=== PATIENT | male | born 1965 | race Caucasian/White ===

== ENCOUNTER 2025-01-24 13:26 | Inpatient (IN) | payer MEDICAID ==
[~2025-01-24] VITALS: Ht 180.3 cm; Wt 88.0 kg
--- NOTE | 2025-01-24 13:38 | Physician Documentation ---
Addendum CHIEF COMPLAINT/HPI: The patient is brought here by EMS after police were called because he was seen crawling on the ground. He has been disoriented and not answering questions appropriately. There are no prior visits present in the EMR. He apparently had a girlfriend but she ran off prior to EMS arrival so no prior medical history has been obtained. REVIEW OF SYSTEMS: Unable to obtain due to altered mental status. PHYSICAL EXAMINATION: Vitals and nursing note reviewed. Constitutional: General: Patient is awake, alert and disoriented. Speech is clear. Appearance: There is a question of slight right-sided facial droop. HENT: Head: Normocephalic and atraumatic. Mouth/Throat: Mouth: Mucous membranes are moist. Pharynx: Oropharynx is clear. Eyes: General: No scleral icterus. Extraocular Movements: Extraocular movements intact. Pupils: Pupils are equal, round, and reactive to light. Neck: Supple, no Kernig or Brudzinski sign. Cardiovascular: Rate and Rhythm: Normal rate and regular rhythm. Heart sounds: No murmur heard. Pulmonary: Effort: No respiratory distress. Breath sounds: No wheezing, rhonchi or rales. Abdominal: General: There is no distension. Palpations: There is no fluid wave, hepatomegaly or mass. Tenderness: There is no abdominal tenderness. There is no guarding. Musculoskeletal: General: No swelling or deformity. Skin: Coloration: Skin is not jaundiced. Findings: No erythema or rash. Neurological: Mental Status: Patient is alert. He does appear to be neglecting his right side. EKG medically necessary in the evaluation of stroke and interpreted by me at the time of patient evaluation. Rhythm is sinus rhythm with a rate of 89. Right axis deviation. Impression: Abnormal EKG. MEDICAL DECISION MAKING: This 59-year-old male presented after inappropriate behavior, crawling on the ground, confusion and neglecting his right side. Tele stroke agreed with this assessment and recommended admission for the full stroke workup. Departure Disposition: ADMITTED INPATIENT Admitted to Inpatient Unit: to hospitalist Admission Level of Care: Neuro with Tele Impression: Primary Impression: Cerebrovascular accident Condition: MANJIT Brown MD Jan 24, 2025 13:38
[2025-01-24 13:44] LABS: MEAN PLATELET VOLUME 7.5 FL (7.4-10.4); RED CELL DISTRIBUTION WIDTH 14.3 % (11.5-14.5)
[2025-01-24 13:57] LABS: APTT 26 SECONDS (22-32); INR 1.1 INR
--- NOTE | 2025-01-24 14:02 | ELECTROCARDIOGRAPH REPORT ---
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
--- NOTE | 2025-01-24 14:18 | RADIOLOGY REPORT ---
EXAM: CT CT STROKE ALERT INDICATION: Level two TECHNIQUE: CT images of the head were obtained without administration of IV contrast. CT scans at this facility use dose modulation, iterative reconstruction, and/or weight based dosing when appropriate to reduce radiation dose to as low as reasonably achievable. COMPARISON: CT CTA NECK/HEAD on DOS: 01/24/25 FINDINGS: PARENCHYMA: No acute hemorrhage. There is no mass effect, midline shift, or herniation. There is preservation of the murdock white differentiation. Moderate scattered hypoattenuation along the periventricular, centrum semiovale, and deep white matter tracts, which are nonspecific however statistically most likely represent chronic microvascular ischemic change. area of hypoattenuation with loss of murdock-white differentiation of the left parietal lobe, age-indeterminate. VENTRICLES: No hydrocephalus. EXTRA-AXIAL SPACES: No extra-axial fluid collections. OTHER: The bony structures are intact. Visualized portions of the paranasal sinuses and mastoid air cells are clear. IMPRESSION: 1. No CT evidence of an acute intracranial hemorrhage. 2. Age-indeterminate areas of hypoattenuation with loss of murdock-white differentiation of the left parietal lobe and left cerebellar hemisphere. Critical Findings: Stroke Alert Findings discussed with MANJIT OSCAR at 01/24/2025 4:16 PM BAIT MAN, who acknowledged receipt and understanding of the findings.
--- NOTE | 2025-01-24 14:25 | RADIOLOGY REPORT ---
CHEST RADIOGRAPH Indication: Stroke Alert Technique: Single frontal view of the chest was obtained Comparison: None FINDINGS: Lines and Tubes: None Lungs: No focal consolidation. Pleura: No effusion. No pneumothorax. Cardiomediastinal contours: Unremarkable Bones: No acute osseous abnormality. IMPRESSION: No acute cardiopulmonary disease.
--- NOTE | 2025-01-24 14:27 | RADIOLOGY REPORT ---
CLINICAL INFORMATION: Level 2 stroke alert. Left-sided weakness. TECHNIQUE: Axial CTA images of the head and neck were obtained after the uneventful administration of 100 mL Omnipaque 350 IV contrast. Coronal and sagittal reformatted images and MIP images were obtained, reviewed, and stored. Measurements of carotid stenosis are made per NASCET criteria. All CT scans at this medical facility are performed using dose modulation techniques as appropriate to a performed exam including the following: Automated exposure control was utilized; adjustment of the MA and/or KV according to patient size; and use of iterative reconstruction technique. CTDIvol = 15.23, 27.34 mGy DLP = 645.07 mGy-cm COMPARISON: Same-day noncontrast enhanced CT head. FINDINGS: CTA HEAD: Posterior cerebral arteries, basilar artery, and intracranial segments of the distal vertebral arteries are normal in caliber and course with no evidence of aneurysm, large vessel occlusion, significant stenosis, or vascular malformation. The anterior and middle cerebral arteries and intracranial segments of the distal internal carotid arteries are normal in caliber and course with no evidence of aneurysm, large vessel occlusion, significant stenosis, or vascular malformation. CTA NECK: Normal configuration of the aortic arch with patent origins of the brachiocephalic artery, left common carotid artery, and left subclavian artery. Subclavian arteries are patent with no significant stenosis. The bilateral common carotid, internal carotid, and external carotid arteries are patent with no significant stenosis or evidence of dissection. Vertebral arteries are patent with no significant stenosis or evidence of dissection. IMPRESSION: 1. CTA head demonstrates no evidence of large vessel occlusion, aneurysm, or significant stenosis. 2. CTA neck demonstrates no evidence of carotid or vertebral dissection or significant stenosis. 3. Additional findings as detailed above.
[2025-01-24 14:40] LABS: CREATININE 0.92 MG/DL (0.60-1.10); TOTAL CARBON DIOXIDE 20.8 MMOL/L (24-32); eCRCL 92 ML/MIN; eGFR 84 ML/MIN
[2025-01-24 14:48] LABS: ETHANOL < 10 MG/DL (<10)
--- NOTE | 2025-01-24 15:33 | [facility] CONSULT REPORT ---
[facility] Procedure Note [facility] Procedure Note Consult [facility] Note # Demographics Consult Type: Acute Stroke Level 2 (4.5-24 hrs) Patient Location: Emergency Room First Name: KAROL Last Name: MARI Date of : 1965 Age: 59 Gender: Male Facility: [facility] Time of Initial Page (): 01/24/2025 14:35 First Contact with Site (): 01/24/2025 14:35 # HPI Chief Complaint: - altered mental state History: 59 y/o M presented after found crawling on the floor and altered. He denies a headache, loss of vision, double vision, weakness, numbness or tingling. He says he feels weird and doesn't know what is wrong. Pt unable to provide any history. # Scores Time of exam and NIHSS (): 01/24/2025 15:09 Level of Consciousness 1a: [0] = Alert; keenly responsive LOC Questions 1b: [2] = Answers neither correctly LOC Commands 1c: [0] = Performs both tasks correctly Best Gaze 2: [1] = Partial gaze palsy Visual 3: [0] = No visual loss Facial Palsy 4: [0] = Normal symmetrical movements Motor Arm Left 5a: [0] = No drift Motor Arm Right 5b: [1] = Drift Motor Leg Left 6a: [2] = Some effort against gravity Motor Leg Right 6b: [3] = No effort against gravity Limb Ataxia 7: [0] = Absent Sensory 8: [0] = Normal Best Language 9: [1] = Fayr-aw-ydybproz aphasia Dysarthria 10: [0] = Normal Extinction and Inattention 11: [1] = Visual, tactile, auditory, spatial, or personal inattention NIHSS Total: 11 # Exam SBP: 146 DBP: 99 Additional Neurologic Exam: exam limited due to AMS and ? neglect and no staff at bedside to assist # PMH-FH-SH Past Medical History: unknown # Data Head CT: - early ischemic change age indeterminate L parietal and L cerebellar infarcts CTA Head: - no large vessel occlusion - per radiologist read CTA Neck: - patent vessels - per radiologist read # Assessment Impression: - Ischemic Stroke (Acute) # Plan Thrombolytic/Intervention: NOT IV Thrombolysis or IA Intervention candidate Thrombolytic Exclusion: > 4.5 hours Intraarterial Exclusion: - no large vessel occlusion (LVO) Labs: - CBC - comprehensive metabolic panel - hemoglobin A1c - lipid panel - ua - urine drug screen - TSH - troponin - Ammonia Imaging: (urgency: routine): - MRI Brain without contrast Diagnostic Test: - echo with bubble study Therapy/Evaluation: - PT/OT evaluation - NPO until swallow evaluation Medication: - aspirin 81 mg daily - start statin with goal of LDL < 70 Other: - If patient has any neurological deterioration please call me back immediately - permissive hypertension - telemetry monitoring - I have discussed my recommendations with the referring provider - LDL < 70 Disposition: admit # Logistics Attestation of consult completion: The patient is located at: [facility]. Facility staff participated in the visit. I performed this telemedicine visit from my offsite office utilizing interactive 2 way audio and visual telecommunication technology at the request of the onsite emergency room provider. Total time spent in telemedicine encounter: I spent 25 minutes reviewing clinical data and/or imaging, obtaining history, examining the patient, communicating with the onsite care team, and in preparation of this report. # Demographics First Name: KAROL Last Name: MARI Facility: [facility] Electronically signed at 01/24/2025 15:33 ([place] Time) by Adri Salas MD Neuro Consult Order placed for: Yes ADRI SALAS MD Jan 24, 2025 15:33
[2025-01-24 16:16] LABS: LEUKOCYTE ESTERASE ,URINE NEGATIVE (Neg); NITRITES, URINE NEGATIVE (Neg); OCCULT BLOOD,URINE NEGATIVE (Neg)
[2025-01-24 16:27] LABS: UA COLLECTION TYPE NON-SPECIFIED
[2025-01-24 16:54] LABS: URINE AMPHETAMINE SCREEN POSITIVE (Neg); URINE BARBITUATE SCREEN NEGATIVE (Neg); URINE BENZODIAZEPINES SCREEN NEGATIVE (Neg); URINE CANNABINOID SCREEN POSITIVE (Neg); URINE COCAINE SCREEN NEGATIVE (Neg); URINE METHADONE SCREEN NEGATIVE (Neg); URINE OPIATE SCREEN NEGATIVE (Neg); URINE PHENCYCLIDINE SCREEN NEGATIVE (Neg)
[2025-01-24] MEDS ORDERED: ondansetron/PF 4mg/2ml inj IV PRN (18:05)
[2025-01-24] MEDS: normal saline 1000ml 1,000 ML IV SCH (18:05)
[2025-01-24] MEDS: PERFLUTREN PROTEIN-A MICROSPHR (Optison) 0.22 MG/ML 3ML VIAL IV ONE (18:05)
[2025-01-24] MEDS ORDERED: potassium Cl 40MEQ/1/2NS 520ml 520 ML IV PRN (18:05)
[2025-01-24] MEDS ORDERED: mag hydrox/Alum hydrox/simeth 30ml oral suspension PO PRN (18:05)
[2025-01-24] MEDS ORDERED: magnesium Cl slow-release 64mg tablet PO PRN (18:05)
[2025-01-24] MEDS ORDERED: magnesium sulf-water 2g/50mL 50 ML IV PRN (18:05)
[2025-01-24] MEDS ORDERED: potassium Cl 20 mEq SR tablet PO PRN ×2 (18:05)
[2025-01-24] MEDS ORDERED: magnesium hydroxide 30ml (MOM) UD suspension PO PRN (18:05)
[2025-01-24] MEDS ORDERED: magnesium sulf-water 4G/100mL 100 ML IV PRN (18:05)
--- NOTE | 2025-01-24 18:17 | HISTORY AND PHYSICAL-Residence ---
History & Physical Providers to CC Resident Creating Document: JOJO GOMEZ, RES CC: ROLO ARZOLA MD ~ History of Present Illness Reason for Admit\Complaint: TIA/stroke History of Present Illness This is a 59-year-old male patient with unknown past medical history was brought here by EMS after police were called because he was seen crawling on the ground. On arrival to the ED, patient was AxO times 0, patient was extremely confused as per ED physician. Apparently patient had extreme weakness and parked his car to the side and started crawling on the ground. Patient was seen and examined with his mother by his side. Most of the information regarding the patient was obtained from patient's mother. As per information provided by the mother, has been experiencing recurrent episodes of confusion the last one month and has also had multiple falls and weakness during the last one month. Patient has not seen a primary care doctor in a very long time. Patient could not give me any significant history Patient lives with his mother and father in their house. Patient does not have a primary care doctor Allergies: Coded Allergies: No Known Allergies (Unverified , 01/24/25) Past Medical History Past Medical History None Past Surgical History Surgical History Comment None Past Social History Social History Comment Patient occasionally drinks alcohol, does not have a history of any tobacco use Patient does have a history of methamphetamine use ROS ROS Review of systems could not be elicited, the patient was extremely confused and was not coherent Exam Vitals: Vital Signs Date Time Temp Pulse Resp B/P (MAP) Pulse Ox O2 Delivery O2 Flow Rate FiO2 01/24/25 18:07 78 18 147/98 95 01/24/25 13:33 98.0 0 General: General: Alert and oriented x 0 HEENT: Conjunctive are pink, sclerae clear, no icterus, pupil is equal in both sides, reactive to light, no ear discharge, no pharyngeal erythema or an edema. Neck: Supple, no JVD, no lymphadenopathy and thyromegaly. Chest: Equal air entry on both lungs, no additional sounds no rhonchi no wheezing at the moment. Cardiovascular: S1-S2 regular sinus rhythm and, regular rate, no gallops, no rubs, no murmurs Abdomen: No visible peristalsis, Bowel sounds present on auscultation, soft, no tenderness, no guarding, no rigidity Extremities: No obvious deformities, no pitting edema bilaterally, capillary refill intact, peripheral pulsations are intact on both sides Central Nervous System: Patient is extremely confused, not cooperate for a full central nervous system examination. However patient did have 5/5 strength in his left upper extremity, but had 0/5 in right upper extremity, he could not follow my commands further Musculoskeletal: No joint swelling, deformities, inflammations, and no scoliosis and back tenderness Skin: Bruises present on patient's bilateral knees and bilateral ankles and hands. Warm and dry. Dry oral mucosa. Diagnostic Data Last Recorded Lab Results: 01/24/25 1336 01/24/25 1336 Diagnostic Data: Laboratory Tests Test 01/24/25 13:36 Prothrombin Time 10.8 SECONDS (9.0-12.0) INR International Normalized Ratio 1.1 INR Activated Partial Thromboplast Time 26 SECONDS (22-32) Coagulation Comments Advance Care Planning Advanced Care plannin - 30 Minutes (Discussed advanced care planning with the patient's mother, as patient appears confused and she told me that she wanted patient to be a full code) Additional Plan Altered mentation secondary to illicit drug use CVA likely secondary to acute ischemic stroke versus subacute ischemic stroke versus encephalopathy On physical examination: Patient does have neglect of his right side; CT brain reported No CT evidence of an acute intracranial hemorrhage. Age- indeterminate areas of hypoattenuation with loss of murdock-white differentiation of the left parietal lobe and left cerebellar hemisphere. Head CTA:no evidence of large vessel occlusion, aneurysm, or significant stenosis. CTA neck demonstrates no evidence of carotid or vertebral dissection or significant stenosis. EKG: normal ST segments are unremarkable no ST elevation or depression. [place] teleneurologist was consulted NIHSS score 11(as per tele neurologist); Tele neurologist excluded thrombolysis option as the duration is more than 4.5 hours Maintain target blood pressure is between 140-180mmHg Utox was positive for amphetamines and cannabinoids Plan Continue aspirin 81 mg, atorvastatin 80 mg and clopidogrel 75 mg Initiated the patient on fluids normal saline 100 ml/hr Fall and aspiration precautions in place, Patient is NPO till he passes bedside swallow test Ordered physical therapy Follow up with ammonia levels, lipid profile, HGB A1c Follow up with MRI head Follow with echocardiogram Active methamphetamine and cannabinoid use director clinical information services and substance abuse navigator orders in place Code Status: Full code DVT Prophylaxis: SCDs Lines/Tubes: PIV Nutrition: NPO PT:yes Prognosis: Guarded Disposition: We will continue to monitor the patient in ortho/neurology with telemetry Jojo Gomez MD Internal medicine resident,PGY-1 Date of Service: Jan 24, 2025 Billing Provider: ROLO ARZOLA MD Common Visit Codes: [id number] INP/OBS CARE (HIGH) Secondary Visit Codes: [id number] CARE PLAN 30 MINUTES JOJO GOMEZ, RES Jan 24, 2025 18:17 ROLO ARZOLA MD Feb 01, 2025 15:22
[2025-01-24] MEDS: K and/or MAG REPLACEMENT MC SCH (20:00)
[2025-01-24] MEDS: docusate sod 100mg capsule PO SCH (20:00)
[2025-01-24 22:15] VITALS: BP 174/103; PULSE 72; RESP 16; TEMP 97.8; O2SAT 96
[2025-01-25 02:00] VITALS: BP 129/85; PULSE 80; RESP 14; TEMP 97.4; O2SAT 97
[2025-01-25 04:25] VITALS: BP 138/91; PULSE 68
[2025-01-25 06:00] VITALS: BP 131/93; PULSE 78; RESP 18; TEMP 96.9; O2SAT 100
[2025-01-25 06:15] LABS: MEAN PLATELET VOLUME 7.8 FL (7.4-10.4); RED CELL DISTRIBUTION WIDTH 14.3 % (11.5-14.5)
[2025-01-25 06:20] LABS: CHOL/HDL RATIO 3.1 (0.00-4.99); CREATININE 0.69 MG/DL (0.60-1.10); LDL CHOLESTEROL 76 MG/DL (50-100); TOTAL CARBON DIOXIDE 26.0 MMOL/L (24-32); eCRCL 123 ML/MIN; eGFR > 90 ML/MIN
[2025-01-25 06:22] LABS: APTT 28 SECONDS (22-32); INR 1.1 INR
[2025-01-25 10:00] VITALS: BP 135/89; PULSE 74; RESP 20; TEMP 98.5; O2SAT 96
[2025-01-25] MEDS: aspirin 81mg, enteric-coated 1 TAB TABLET.DR PO SCH (11:55)
--- NOTE | 2025-01-25 16:37 | PROGRESS NOTE- Residence ---
Progress Note - Resident Providers to CC Resident Creating Document: JOJO COLLINS RES ~ Antibiotic Timeout Antibiotic Ordered?: No Subjective Patient was seen and examined at his bedside with his mom and his girlfriend by his side. Patient continues to have confusion alert and oriented x1. His mentation is slightly better compared to yesterday. No other acute overnight symptoms noted Objective Vital Signs Date Time Temp Pulse Resp B/P (MAP) Pulse Ox O2 Delivery O2 Flow Rate FiO2 01/25/25 11:33 Room Air 0.0 01/25/25 10:00 98.5 74 20 135/89 (104) 96 Result Diagram: 01/25/2553201/25/25532 General: Alert and oriented x 1. Patient is still continues to be confused but better in mentation compared to yesterday HEENT: Conjunctive are pink, sclerae clear, no icterus, pupil is equal in both sides, reactive to light, no ear discharge, no pharyngeal erythema or an edema. Neck: Supple, no JVD, no lymphadenopathy and thyromegaly. Chest: Equal air entry on both lungs, no additional sounds no rhonchi no wheezing at the moment. Cardiovascular: S1-S2 regular sinus rhythm and, regular rate, no gallops, no rubs, no murmurs Abdomen: No visible peristalsis, Bowel sounds present on auscultation, soft, no tenderness, no guarding, no rigidity Extremities: No obvious deformities, no pitting edema bilaterally, capillary refill intact, peripheral pulsations are intact on both sides Central Nervous System: Patient continues to fluctuate in his mentation, not cooperate for a full central nervous system examination. However, patient did have 5/5 strength in all extremities today. Patient could not follow my other commands for a full neurological examination Musculoskeletal: No joint swelling, deformities, inflammations, and no scoliosis and back tenderness Skin: Bruises present on patient's bilateral knees and bilateral ankles and hands. Warm and dry. Dry oral mucosa. Coagulation Studies Laboratory Tests Test 01/25/25 05:33 Prothrombin Time 10.9 SECONDS (9.0-12.0) INR International Normalized Ratio 1.1 INR Activated Partial Thromboplast Time 28 SECONDS (22-32) Coagulation Comments Advance Care Planning Advanced Care plannin - 30 Minutes Plan Plan Altered mentation secondary to illicit drug use CVA likely secondary to acute ischemic stroke versus subacute ischemic stroke versus encephalopathy Patient had neglect of his right side yesterday today patient's motor examination was normal CT brain reported N evidence of an acute intracranial hemorrhage. Age- indeterminate areas of hypoattenuation with loss of murdock-white differentiation of the left parietal lobe and left cerebellar hemisphere. Head CTA:no evidence of large vessel occlusion, aneurysm, or significant stenosis. EKG: normal ST segments are unremarkable no ST elevation or depression. Utox was positive for amphetamines and cannabinoids Patient's ammonia was normal, lipid panel normal Echocardiogram reported EF of 60-65% Patient passed his swallow test by speech therapy; initiated minced moist diet Plan Continue aspirin 81 mg, atorvastatin 80 mg and clopidogrel 75 mg Continue the patient on fluids normal saline 100 ml/hr Fall and aspiration precautions in place, Ordered physical therapy Follow up with MRI head Ascending aorta dilation Incidental echocardiogram measured dilation and ascending aorta 4.9 cm Would recommend patient to get CT and outpatient follow up with his primary care doctor Active methamphetamine and cannabinoid use coordinator of library services and substance abuse navigator orders in place Newly diagnosed type 2 diabetes Hb A1c elevated at 6.5 Continue to monitor glucose and we will possibly initiate treatment if his blood glucose spikes more than 180mg/dl Code Status: Full code DVT Prophylaxis: SCDs Lines/Tubes: PIV Nutrition: Minced moist diet PT:yes Prognosis: Guarded Disposition: We will continue to monitor the patient in ortho/neurology with telemetry. MRI pending Jojo Collins MD Internal medicine resident,PGY-1 Date of Service: Jan 25, 2025 Billing Provider: ROLO ARZOLA MD Common Visit Codes: [id number] INP/OBS CARE(HIGH) JOJO COLLINS, RES Jan 25, 2025 16:37 ROLO ARZOLA MD Feb 01, 2025 15:22
--- NOTE | 2025-01-25 18:31 | CARDIOLOGY REPORT ---
APPROVED REPORT EXAM: Comprehensive 2D, Doppler, and color-flow Echocardiogram with saline. Patient Location: 4[address] Blood Pressure: 131/93 mmHg Heart Rate: 73 bpm Rhythm: SINUS Indications CEREBRAL VASCULAR ACCIDENT EVALUATE FOR PFO [employer] Worker: unknown (pt confused, unable to answer questions) Previous echo: none 2D Dimensions RVDd 3.4 cm IVSd 1.2 (0.7-1.1cm) LVDd 4.5 cm PWd 1.2 (0.7-1.1cm) IVSs 1.4 (0.8-1.2cm) LVDs 3.4 (2.5-4.0cm) PWs 1.6 (0.8-1.2cm) LVOT Diameter 2.37 (1.8-2.4cm) Ao Asc Diam. 5.04 cm IVC 17.71 mm FS (%) 25.3 % SV 47.1 ml CO 3.4 L/min M-Mode Dimensions Left Atrium(MM) 3.01 (2.5-4.0cm) IVSd 1.17 (0.7-1.1cm) LVDd 4.16 (4.0-5.6cm) Aortic Root 3.67 (2.2-3.7cm) PWd 1.24 (0.7-1.1cm) Aortic Cusp Exc 1.81 (1.5-2.0cm) IVSs 1.63 cm MV EPSS 0.9 (<0.5cm) LVDs 2.80 (2.0-3.8cm) FS (%) 33 % PWs 2.02 cm ESV(Teich) 29.6 ml LVEF(%) 62 (>50%) Aortic Valve AoV Peak Lopez. 111.2 cm/s AoV VTI 17.4 cm AO Peak GR. 4.9 mmHg AO Mean GR. 2 mmHg LVOT VTI 18.26 cm LVOT Peak Lopez. 93.3 cm/s FRANCISCO(VTI)/BSA 4.62 cm2/m2 FRANCISCO (VTI) 4.62 cm2 AV DI 1.05 % Mitral Valve MV E Velocity 59.3 cm/s MV Peak Gr. 1 mmHg MV DECEL TIME 196 ms MV A Velocity 72.9 cm/s MV PHT 52 ms E/A Ratio 0.8 MVA (PHT) 4.23 cm2 MV VMax 51.8 cm/s TDI Medial E' P. V 8.31 cm/s E/Medial E' 7.1 Pulmonary Vein S1 Velocity 59.6 cm/s D2 Velocity 38.7 cm/s PVa Velocity 23.5 cm/s PVa Duration 108 msec LEFT VENTRICLE Normal LV size and function. Mild concentric hypertrophy. LVEF is 60-65%. RIGHT VENTRICLE RV is mildly dilated in size with normal function. ATRIA LA size is normal. Saline study was performed with 2 IV injections of 10 ccs of agitated normal saline at rest and with valsalva. Negative saline study for right to left flow. AORTIC VALVE Trileaflet AV appears mildly sclerotic without stenosis or insufficiency. MITRAL VALVE Mild MV annular calcification without stenosis. Trace regurgitation. TRICUSPID VALVE TV appears structurally normal with trace regurgitation. PULMONIC VALVE Normal PV without stenosis, physiologic insufficiency. GREAT VESSELS Aortic root is upper limit normal in size. Ascending aorta is dilated, measuring about 4.[address] to evaluate further if clinically indicated. The IVC is normal in size and collapses greater than 50% with inspiration. PERICARDIUM Normal pericardium. No effusion. Other Information Study Quality: Adequate Conclusion Normal LV size and function. Mild concentric hypertrophy. LVEF is 60-65%. RV is mildly dilated in size with normal function. LA size is normal. Saline study was performed with 2 IV injections of 10 ccs of agitated normal saline at rest and with valsalva. Negative saline study for right to left flow. Trileaflet AV appears mildly sclerotic without stenosis or insufficiency. Mild MV annular calcification without stenosis. Trace regurgitation. TV appears structurally normal with trace regurgitation. Aortic root is upper limit normal in size. Ascending aorta is dilated, measuring about 4.[address] to evaluate further if clinically indicated. Normal pericardium. No effusion.
--- NOTE | 2025-01-25 19:00 | RADIOLOGY REPORT ---
EXAM: MR MRI HEAD INDICATION: TIA/STROKE TECHNIQUE: Multiplanar, multisequence imaging of the brain without contrast. COMPARISON: CT CTA NECK/HEAD on DOS: 01/24/25 FINDINGS: [PARENCHYMA]: Significant multifocal areas of diffusion restriction along the left insert cortex, posterior frontal lobe, left parietal lobe . No mass effect or herniation. No abnormal susceptibility weighted artifact. There are moderate to severe periventricular and centrum semiovale T2/FLAIR hyperintensities, which are nonspecific but most likely represent chronic microvascular ischemic change. Multiple areas of the lacunar infarctions in bilateral centrum semiovale. Prior infarction of the left cerebellar hemisphere with surrounding gliosis. [VENTRICLES]: No hydrocephalus. [EXTRA-AXIAL SPACES]: No extra-axial fluid collections. [FLOW VOIDS]: The flow voids are intact. [EXTRA-CRANIAL STRUCTURES]: The bony structures are intact. Visualized portions of the paranasal sinuses and mastoid air cells are essentially clear. IMPRESSION: 1. Multiple acute infarcts in the left posterior frontal and parietal lobes. 2. Moderate to severe chronic microvascular ischemic change. 3. Multiple chronic lacunar infarctions in bilateral centrum semiovale. 4. Chronic left cerebellar hemisphere infarct.
[2025-01-25 22:00] VITALS: BP 168/101; PULSE 64; RESP 14; TEMP 97.4; O2SAT 96
[2025-01-26 02:00] VITALS: BP 152/94; PULSE 77; RESP 14; TEMP 98.6; O2SAT 96
[2025-01-26 06:00] VITALS: BP 161/90; PULSE 67; RESP 15; TEMP 96.8; O2SAT 95
[2025-01-26 06:06] LABS: MEAN PLATELET VOLUME 7.5 FL (7.4-10.4); RED CELL DISTRIBUTION WIDTH 14.1 % (11.5-14.5)
[2025-01-26 06:30] LABS: CREATININE 0.84 MG/DL (0.60-1.10); TOTAL CARBON DIOXIDE 26.1 MMOL/L (24-32); eCRCL 101 ML/MIN; eGFR > 90 ML/MIN
[2025-01-26 09:06] VITALS: RESP 15; O2SAT 95
[2025-01-26] MEDS: thiamine 100mg/ml 2ml inj. IV SCH (14:23)
[2025-01-26 18:00] VITALS: BP_SYST 150; BP_SYST 155; BP_DIAS 97; PULSE 76; RESP 14; TEMP 97.5; O2SAT 95
[2025-01-26 19:33] VITALS: RESP 16; O2SAT 95
--- NOTE | 2025-01-26 19:48 | PROGRESS NOTE- Residence ---
Progress Note - Resident Providers to CC Resident Creating Document: JOJO COLLINS RES CC: ROLO ARZOLA MD ~ Antibiotic Timeout Antibiotic Ordered?: No Subjective Patient was seen and examined at his bedside with his mom and his girlfriend by his side. Mentation [place] patient is much better compared to yesterday; explained to the patient and his family regarding his MRI results and the need of post acute rehab after his discharge. No other acute overnight symptoms noted Objective Vital Signs Date Time Temp Pulse Resp B/P (MAP) Pulse Ox O2 Delivery O2 Flow Rate FiO2 01/26/25 19:33 16 95 Room Air 0.0 01/26/25 18:30 81 01/26/25 18:00 97.5 155/97 (116) Result Diagram: 01/26/25 0535 01/26/25534 General: Alert and oriented x 2. Patient is still continues to be confused but better in mentation compared to yesterday HEENT: Conjunctive are pink, sclerae clear, no icterus, pupil is equal in both sides, reactive to light, no ear discharge, no pharyngeal erythema or an edema. Neck: Supple, no JVD, no lymphadenopathy and thyromegaly. Chest: Equal air entry on both lungs, no additional sounds no rhonchi no wheezing at the moment. Cardiovascular: S1-S2 regular sinus rhythm and, regular rate, no gallops, no rubs, no murmurs Abdomen: No visible peristalsis, Bowel sounds present on auscultation, soft, no tenderness, no guarding, no rigidity Extremities: No obvious deformities, no pitting edema bilaterally, capillary refill intact, peripheral pulsations are intact on both sides Central Nervous System: Mental status: Awake, alert, oriented to person, place and time. Able to answer simple questions, although patient gets spaced out after 2-3 minutes of conversation; global aphasia noted Motor system: Right-sided neglect noted in upper and lower extremities patient's strength in the right upper extremity and lower extremity 3/5 left upper and lower extremity 5/5 Negative Babinski. Musculoskeletal: No joint swelling, deformities, inflammations, and no scoliosis and back tenderness Skin: Bruises present on patient's bilateral knees and bilateral ankles and hands. Warm and dry. Dry oral mucosa. Coagulation Studies Laboratory Tests Test 01/25/25 05:33 Prothrombin Time 10.9 SECONDS (9.0-12.0) INR International Normalized Ratio 1.1 INR Activated Partial Thromboplast Time 28 SECONDS (22-32) Coagulation Comments Advance Care Planning Advanced Care plannin - 30 Minutes Plan Plan Altered mentation secondary to illicit drug use CVA likely secondary to acute ischemic stroke versus subacute ischemic stroke versus encephalopathy Neglect of his right side,abnormal gait CT brain reported N evidence of an acute intracranial hemorrhage. Age- indeterminate areas of hypoattenuation with loss of murdock-white differentiation of the left parietal lobe and left cerebellar hemisphere. Head CTA:no evidence of large vessel occlusion, aneurysm, or significant stenosis. Patient's MRI reported multiple infarct in the left posterior frontal and parietal lobes, multiple chronic lacunar infarcts in bilateral centrum, chronic left cerebellar hemisphere infarct Utox was positive for amphetamines and cannabinoids Patient's ammonia was normal, lipid panel normal; Echocardiogram reported EF of 60-65% Patient passed his swallow test by speech therapy; initiated minced moist diet Physical therapy worked with the patient today and recommended post acute rehab Plan Continue aspirin 81 mg, atorvastatin 80 mg and clopidogrel 75 mg Continue the patient on fluids normal saline 100 ml/hr Fall and aspiration precautions in place Continue the patient on amlodipine 10 mg; as the timeframe for permissive hypertensive is over Need to closely monitor patient's hypertension Ascending aorta dilation Incidental echocardiogram measured dilation and ascending aorta 4.9 cm Would recommend patient to get CT and outpatient follow up with his primary care doctor Active methamphetamine and cannabinoid use 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 services 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 Newly diagnosed type 2 diabetes Hb A1c elevated at 6.5 Continue to monitor glucose and we will possibly initiate treatment if his blood glucose spikes more than 180mg/dl Code Status: Full code DVT Prophylaxis: SCDs Lines/Tubes: PIV Nutrition: Minced moist diet PT:yes Prognosis: Guarded Disposition: We will continue to monitor the patient today, and patient will most likely get discharged to post acute rehab tomorrow Jojo Collins MD Internal medicine resident,PGY-1 Date of Service: Jan 26, 2025 Billing Provider: ROLO ARZOLA MD Common Visit Codes: [id number] INP/OBS CARE(HIGH) JOJO COLLINS, RES Jan 26, 2025 19:48 ROLO ARZOLA MD Feb 01, 2025 15:22
[2025-01-26 22:00] VITALS: BP 184/105; PULSE 81; RESP 16; TEMP 98.4; O2SAT 95
[2025-01-27 05:58] LABS: MEAN PLATELET VOLUME 7.4 FL (7.4-10.4); RED CELL DISTRIBUTION WIDTH 13.9 % (11.5-14.5)
[2025-01-27 06:00] VITALS: BP 146/89; PULSE 66; RESP 14; TEMP 97.6; O2SAT 99
[2025-01-27 06:09] LABS: APTT 27 SECONDS (22-32); INR 1.0 INR
[2025-01-27 06:15] LABS: CREATININE 0.63 MG/DL (0.60-1.10); PHOSPHORUS 3.1 MG/DL (2.3-4.5); TOTAL CARBON DIOXIDE 24.3 MMOL/L (24-32); eCRCL 134 ML/MIN; eGFR > 90 ML/MIN
[2025-01-27 08:00] VITALS: RESP 16; O2SAT 95
[2025-01-27] MEDS: multivitamins, therapeutics tablet PO SCH (08:38)
[2025-01-27] MEDS: folic acid 1mg/0.2ml inj IV SCH (08:39)
[2025-01-27 10:00] VITALS: BP 153/104; PULSE 86; RESP 16; TEMP 97.7; O2SAT 97
[2025-01-27 10:40] VITALS: BP 135/82
[2025-01-27] MEDS ORDERED: NO HOME MEDS (16:19)
[2025-01-27 18:00] VITALS: BP 133/86; PULSE 82; RESP 16; TEMP 97.6; O2SAT 94
--- NOTE | 2025-01-27 21:03 | PROGRESS NOTE- Residence ---
Progress Note - Resident Providers to CC Resident Creating Document: JOJO COLLINS RES CC: ROLO ARZOLA MD ~ Antibiotic Timeout Antibiotic Ordered?: No Subjective Patient was seen and examined at his bedside with his mom and his girlfriend by his side. Patient is better mentation compared to yesterday; no other acute overnight symptoms started Objective Vital Signs Date Time Temp Pulse Resp B/P (MAP) Pulse Ox O2 Delivery O2 Flow Rate FiO2 01/27/25 20:09 Room Air 0.0 01/27/25 16:29 15 01/27/25 10:40 135/82 (99) 01/27/25 10:00 97.7 86 97 Result Diagram: 01/27/25 0530 01/27/25 0530 General: Alert and oriented x 3. Patient is still continues to be confused but better in mentation compared to yesterday HEENT: Conjunctive are pink, sclerae clear, no icterus, pupil is equal in both sides, reactive to light, no ear discharge, no pharyngeal erythema or an edema. Neck: Supple, no JVD, no lymphadenopathy and thyromegaly. Chest: Equal air entry on both lungs, no additional sounds no rhonchi no wheezing at the moment. Cardiovascular: S1-S2 regular sinus rhythm and, regular rate, no gallops, no rubs, no murmurs Abdomen: No visible peristalsis, Bowel sounds present on auscultation, soft, no tenderness, no guarding, no rigidity Extremities: No obvious deformities, no pitting edema bilaterally, capillary refill intact, peripheral pulsations are intact on both sides Central Nervous System: Mental status: Awake, alert, oriented to person, place and time. Able to answer simple questions, although patient gets spaced out after 2-3 minutes of conversation; global aphasia noted Motor system: Right-sided neglect noted in upper and lower extremities patient's strength in the right upper extremity and lower extremity 3/5 left upper and lower extremity 5/5 Negative Babinski. Musculoskeletal: No joint swelling, deformities, inflammations, and no scoliosis and back tenderness Skin: Bruises present on patient's bilateral knees and bilateral ankles and hands. Warm and dry. Dry oral mucosa. Coagulation Studies Laboratory Tests Test 01/27/25 05:30 Prothrombin Time 10.7 SECONDS (9.0-12.0) INR International Normalized Ratio 1.0 INR Activated Partial Thromboplast Time 27 SECONDS (22-32) Coagulation Comments Advance Care Planning Advanced Care plannin - 30 Minutes Assessment Assessment A 59 year-old male patient presents to the ED with altered mentation then has been diagnosed with cerebrovascular accident infarcts in multiple areas and different regions of the brain Plan Plan Altered mentation secondary to illicit drug use CVA likely secondary to acute ischemic stroke versus subacute ischemic stroke versus encephalopathy CVA changes noted in left parietal and left cerebellar hemisphere; MRI finding reported multiple infarcts Neglect of his right side,abnormal gait Utox was positive for amphetamines and cannabinoids Patient passed his swallow test by speech therapy; his diet has been advanced from minutes to regular diet Physical therapy worked with the patient today and recommended post acute rehab Patient's blood pressure slowly stabilizing Plan Continue aspirin 81 mg, atorvastatin 80 mg and clopidogrel 75 mg Continue the patient on fluids normal saline 100 ml/hr Fall and aspiration precautions in place Continue the patient on amlodipine 10 mg; as the timeframe for permissive hypertensive is over Need to closely monitor patient's hypertension Ascending aorta dilation Incidental echocardiogram measured dilation and ascending aorta 4.9 cm Would recommend patient to get CT and outpatient follow up with his primary care doctor Active methamphetamine and cannabinoid use emergency services professional and substance abuse 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 Patient will get discharged tomorrow Jojo Collins MD Internal medicine resident,PGY-1 Date of Service: Jan 27, 2025 Billing Provider: ROLO ARZOLA MD Common Visit Codes: [id number] INP/OBS CARE(HIGH) JOJO COLLINS, RES Jan 27, 2025 21:03 ROLO ARZOLA MD Feb 01, 2025 15:22
[2025-01-27 22:00] VITALS: BP 137/86; PULSE 84; RESP 15; TEMP 98.2; O2SAT 93
[2025-01-28 06:49] LABS: INR 1.0 INR
[2025-01-28 06:54] LABS: MEAN PLATELET VOLUME 7.5 FL (7.4-10.4); RED CELL DISTRIBUTION WIDTH 14.2 % (11.5-14.5)
[2025-01-28 07:03] LABS: CREATININE 0.71 MG/DL (0.60-1.10); PHOSPHORUS 3.0 MG/DL (2.3-4.5); TOTAL CARBON DIOXIDE 25.6 MMOL/L (24-32); eCRCL 119 ML/MIN; eGFR > 90 ML/MIN
[2025-01-28 08:00] VITALS: RESP 18; O2SAT 94
[2025-01-28 09:28] VITALS: BP 122/70; PULSE 73; RESP 18; TEMP 98.1; O2SAT 94
[2025-01-28] MEDS ORDERED: thiamine tablet PO (10:41)
[2025-01-28 11:38] VITALS: BP 125/87; PULSE 83; RESP 16; TEMP 97.4; O2SAT 95
[2025-01-28 18:00] VITALS: BP 146/96; PULSE 84; RESP 19; TEMP 97.6; O2SAT 94
--- NOTE | 2025-01-28 18:27 | PROGRESS NOTE- Residence ---
Progress Note - Resident Providers to CC Resident Creating Document: JOJO COLLINS RES CC: ROLO ARZOLA MD ~ Antibiotic Timeout Antibiotic Ordered?: No Subjective Patient was seen and examined at his bedside with his mom and his girlfriend by his side. Patient has no acute overnight symptoms Objective Vital Signs Date Time Temp Pulse Resp B/P (MAP) Pulse Ox O2 Delivery O2 Flow Rate FiO2 01/28/25 11:38 97.4 83 16 125/87 (100) 95 Room Air 01/27/25 20:09 0.0 Result Diagram: 01/28/25 0550 01/28/25 0550 General: Alert and oriented x 4 HEENT: Conjunctive are pink, sclerae clear, no icterus, pupil is equal in both sides, reactive to light, no ear discharge, no pharyngeal erythema or an edema. Neck: Supple, no JVD, no lymphadenopathy and thyromegaly. Chest: Equal air entry on both lungs, no additional sounds no rhonchi no wheezing at the moment. Cardiovascular: S1-S2 regular sinus rhythm and, regular rate, no gallops, no rubs, no murmurs Abdomen: No visible peristalsis, Bowel sounds present on auscultation, soft, no tenderness, no guarding, no rigidity Extremities: No obvious deformities, no pitting edema bilaterally, capillary refill intact, peripheral pulsations are intact on both sides Central Nervous System: Mental status: Awake, alert, oriented to person, place and time. Able to answer simple questions, although patient gets spaced out after 2-3 minutes of conversation; global aphasia noted Motor system: Right-sided neglect noted in upper and lower extremities patient's strength in the right upper extremity and lower extremity 3/5 left upper and lower extremity 5/5 Negative Babinski. Musculoskeletal: No joint swelling, deformities, inflammations, and no scoliosis and back tenderness Skin: Bruises present on patient's bilateral knees and bilateral ankles and hands. Warm and dry. Dry oral mucosa. Coagulation Studies Laboratory Tests Test 01/27/25 05:30 01/28/25 05:50 Activated Partial Thromboplast Time 27 SECONDS (22-32) Prothrombin Time 10.5 SECONDS (9.0-12.0) INR International Normalized Ratio 1.0 INR Coagulation Comments Assessment Assessment A 59 year-old male patient presents to the ED with altered mentation then has been diagnosed with cerebrovascular accident infarcts in multiple areas and different regions of the brain Plan Plan Altered mentation secondary to illicit drug use CVA likely secondary to acute ischemic stroke versus subacute ischemic stroke versus encephalopathy CVA changes noted in left parietal and left cerebellar hemisphere; MRI finding reported multiple infarcts Neglect of his right side,abnormal gait Utox was positive for amphetamines and cannabinoids Patient passed his swallow test by speech therapy; his diet has been advanced from minutes to regular diet Physical therapy worked with the patient today and recommended post acute rehab Patient's blood pressure slowly stabilizing Plan Continue aspirin 81 mg, atorvastatin 80 mg and clopidogrel 75 mg Continue the patient on fluids normal saline 100 ml/hr Fall and aspiration precautions in place Continue the patient on amlodipine 10 mg; Need to closely monitor patient's hypertension Ascending aorta dilation Incidental echocardiogram measured dilation and ascending aorta 4.9 cm Would recommend patient to get CT and outpatient follow up with his primary care doctor Active methamphetamine and cannabinoid use student services 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 Patient will get discharged tomorrow Jojo Collins MD Internal medicine resident,PGY-1 Date of Service: Jan 28, 2025 Billing Provider: ROLO ARZOLA MD Common Visit Codes: [id number] INP/OBS CARE(HIGH) JOJO COLLINS, RES Jan 28, 2025 18:27 ROLO ARZOLA MD Feb 01, 2025 15:23
[2025-01-28 22:00] VITALS: BP 141/88; PULSE 77; RESP 14; TEMP 98.3; O2SAT 93
[2025-01-28 23:35] VITALS: BP 142/99; PULSE 92; RESP 25; O2SAT 98
--- NOTE | 2025-01-29 01:40 | RADIOLOGY REPORT ---
EXAM: CT CT HEAD INDICATION: Change in mentation TECHNIQUE: CT of the head without intravenous contrast. Radiation Dose : 1. Head: CT Dose: CTDI volume is 69.31 mGy. Dose-length product is 2519.12 mGy*cm The dose indicators for CT are the volume Computed Tomography (CT) Dose Index (CTDIvol) and the Dose Length Product (DLP), and are measured in units of mGy and mGy-cm, respectively. These indicators are not patient dose, but values generated from the CT scanner acquisition factors. The report includes radiation exposure data for exposures received during this examination. COMPARISON: MR MRI HEAD on DOS: 01/25/25, CT CTA NECK/HEAD on DOS: 01/24/25, CT CT STROKE ALERT on DOS: 01/24/25 FINDINGS: There is no evidence of acute intracranial hemorrhage, extra-axial collection, mass effect, midline shift, herniation or hydrocephalus. Subacute to chronic appearing left centrum semiovale lacunar infarcts. Chronic appearing left cerebellar infarct. Increased prominence of the ventricles, sulci and cisterns consistent with the sequelae of atrophic cortical volume loss. The murdock-white differentiation is intact. Moderate diffuse confluent periventricular and subcortical white matter hypoattenuation is nonspecific but may be related to small vessel ischemic disease. The visualized paranasal sinuses and mastoid air cells are clear. The surrounding soft tissues and osseous structures are unremarkable. IMPRESSION: 1. No acute intracranial abnormality. 2. Subacute to chronic appearing left centrum semiovale lacunar infarcts. 3. Chronic appearing left cerebellar infarct. 4. Chronic sequelae of microangiopathy and atrophic cortical volume loss. Radiation optimization: All CT scans at this facility use at least one of these dose optimization techniques: automated exposure control mA and/or kV adjustment per patient size (includes targeted exams where dose is matched to clinical indication) or iterative reconstruction.
[2025-01-29 06:00] VITALS: BP 126/86; PULSE 78; RESP 20; TEMP 97.6; O2SAT 97
[2025-01-29 07:27] LABS: INR 1.0 INR
[2025-01-29 07:37] LABS: CREATININE 0.75 MG/DL (0.60-1.10); PHOSPHORUS 3.4 MG/DL (2.3-4.5); TOTAL CARBON DIOXIDE 27.1 MMOL/L (24-32); eCRCL 113 ML/MIN; eGFR > 90 ML/MIN
[2025-01-29 07:45] LABS: MEAN PLATELET VOLUME 7.3 FL (7.4-10.4); RED CELL DISTRIBUTION WIDTH 14.1 % (11.5-14.5)
[2025-01-29 10:00] VITALS: BP 147/90; PULSE 79; RESP 18; TEMP 98.1; O2SAT 96
[2025-01-29 11:51] LABS: URINE AMPHETAMINE SCREEN NEGATIVE (Neg); URINE BARBITUATE SCREEN NEGATIVE (Neg); URINE BENZODIAZEPINES SCREEN NEGATIVE (Neg); URINE CANNABINOID SCREEN POSITIVE (Neg); URINE COCAINE SCREEN NEGATIVE (Neg); URINE METHADONE SCREEN NEGATIVE (Neg); URINE OPIATE SCREEN NEGATIVE (Neg); URINE PHENCYCLIDINE SCREEN NEGATIVE (Neg)
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
[2025-01-29 18:00] VITALS: BP 123/90; PULSE 76; RESP 16; TEMP 97.9; O2SAT 94
[2025-01-29 22:00] VITALS: BP 138/88; PULSE 71; RESP 14; TEMP 98.6; O2SAT 95
[2025-01-30 06:00] VITALS: BP 129/82; PULSE 64; RESP 14; TEMP 97.6; O2SAT 99
[2025-01-30 07:13] LABS: PHOSPHORUS 3.7 MG/DL (2.3-4.5)
[2025-01-30 10:00] VITALS: BP 135/85; PULSE 81; RESP 14; TEMP 97.6; O2SAT 92
--- NOTE | 2025-01-30 12:07 | PROGRESS NOTE- Residence ---
Progress Note - Resident Providers to CC Resident Creating Document: JOJO COLLINS RES CC: KAROL BREWER DO ~ Antibiotic Timeout Antibiotic Ordered?: No Subjective Patient was seen and examined at his bedside; patient has a no acute overnight symptoms. Patient's blood pressure is well controlled Objective Vital Signs Date Time Temp Pulse Resp B/P (MAP) Pulse Ox O2 Delivery O2 Flow Rate FiO2 01/30/25 09:18 74 01/30/25 08:00 Room Air 0.0 01/30/25 06:00 97.6 14 129/82 (98) 99 Result Diagram: 01/29/2565401/29/25654 General: Alert and oriented x 4 HEENT: Conjunctive are pink, sclerae clear, no icterus, pupil is equal in both sides, reactive to light, no ear discharge, no pharyngeal erythema or an edema. Neck: Supple, no JVD, no lymphadenopathy and thyromegaly. Chest: Equal air entry on both lungs, no additional sounds no rhonchi no wheezing at the moment. Cardiovascular: S1-S2 regular sinus rhythm and, regular rate, no gallops, no rubs, no murmurs Abdomen: No visible peristalsis, Bowel sounds present on auscultation, soft, no tenderness, no guarding, no rigidity Extremities: No obvious deformities, no pitting edema bilaterally, capillary refill intact, peripheral pulsations are intact on both sides Central Nervous System: Mental status: Awake, alert, oriented to person, place and time. Able to answer simple questions Motor system: Right-sided neglect noted in upper and lower extremities patient's strength in the right upper extremity and lower extremity 3/5 ,left upper and lower extremity 5/5 Negative Babinski. Musculoskeletal: No joint swelling, deformities, inflammations, and no scoliosis and back tenderness Skin: Bruises present on patient's bilateral knees and bilateral ankles and hands. Warm and dry. Dry oral mucosa. Coagulation Studies Laboratory Tests Test 01/27/25 05:30 01/29/25 06:55 Activated Partial Thromboplast Time 27 SECONDS (22-32) Prothrombin Time 10.7 SECONDS (9.0-12.0) INR International Normalized Ratio 1.0 INR Coagulation Comments Advance Care Planning Advanced Care plannin - 30 Minutes Assessment Assessment A 59 year-old male patient presents to the ED with altered mentation then has been diagnosed with cerebrovascular accident infarcts in multiple areas and different regions of the brain Plan Plan Altered mentation secondary to illicit drug use CVA likely secondary to acute ischemic stroke versus subacute ischemic stroke versus encephalopathy CVA changes noted in left parietal and left cerebellar hemisphere; MRI finding reported multiple infarcts Neglect of his right side,abnormal gait Utox was positive for amphetamines and cannabinoids Repeat U tox done on 01/29/2025 was positive for cannabinoids Blood pressure well controlled today Plan Continue aspirin 81 mg, atorvastatin 80 mg and clopidogrel 75 mg Continue the patient on fluids normal saline 100 ml/hr Fall and aspiration precautions in place Continue the patient on amlodipine 10 mg; Need to closely monitor patient's hypertension Ascending aorta dilation Incidental echocardiogram measured dilation and ascending aorta 4.9 cm Would recommend patient to get a follow up CT and outpatient follow up with his primary care doctor Active methamphetamine and cannabinoid use director of food and beverage services and substance abuse 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 Patient will get discharged tomorrow Jojo Collins MD Internal medicine resident,[id number] Date of Service: Jan 30, 2025 Billing Provider: KAROL BREWER DO Common Visit Codes: [id number] INP/OBS CARE(HIGH) JOJO COLLINS, RES Jan 30, 2025 12:07 KAROL BREWER DO Jan 30, 2025 14:11
[2025-01-30 18:00] VITALS: BP 129/80; PULSE 84; RESP 14; TEMP 98.3; O2SAT 94
[2025-01-30 22:00] VITALS: BP 131/87; PULSE 85; RESP 16; TEMP 98.4; O2SAT 94
[2025-01-31 06:00] VITALS: BP 148/89; PULSE 79; RESP 18; TEMP 97.9; O2SAT 92
[2025-01-31 06:30] LABS: PHOSPHORUS 3.5 MG/DL (2.3-4.5)
[2025-01-31 07:59] LABS: MEAN PLATELET VOLUME 7.4 FL (7.4-10.4); RED CELL DISTRIBUTION WIDTH 14.4 % (11.5-14.5)
[2025-01-31 08:15] LABS: CREATININE 0.58 MG/DL (0.60-1.10); TOTAL CARBON DIOXIDE 25.3 MMOL/L (24-32); eCRCL 146 ML/MIN; eGFR > 90 ML/MIN
[2025-01-31 10:00] VITALS: BP 134/89; PULSE 87; RESP 18; TEMP 97.8; O2SAT 91
--- NOTE | 2025-01-31 20:01 | DISCHARGE SUMMARY-Residence ---
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 Folic Acid* (Folic Acid*) Y Tab 1 MG PO DAILY for 30 Days, #30 TAB Lisinopril (Lisinopril) 10 Mg Tablet 10 MG PO DAILY for 30 Days, #30 TAB [thiamine tablet] () 100 MG TABLET 100 MG PO DAILY for 30 Days, #30 Continued Medications: Home Med List (No Home Medications) Each Discharge Summary: HPI as per admitting physician: This is a 59-year-old male patient with unknown past medical history was brought here by EMS after police were called because he was seen crawling on the ground. On arrival to the ED, patient was AxO times 0, patient was extremely confused as per ED physician. Apparently patient had extreme weakness and parked his car to the side and started crawling on the ground. Patient was seen and examined with his mother by his side. Most of the information regarding the patient was obtained from patient's mother. As per information provided by the mother, has been experiencing recurrent episodes of confusion the last one month and has also had multiple fal ls and weakness during the last one month. Patient has not seen a primary care doctor in a very long time. Patient could not give me any significant history Patient lives with his mother and father in their house. Patient does not have a primary care doctor Hospital course: Patient was admitted for right lower extremity cellulitis and acute/subacute cerebrovascular accident with altered mental status. On admission, he was found to have erythema, edema, and scabbing of the right lower extremity with MRSA-positive nasal colonization, along with right-sided neglect and abnormal gait. Urine toxicology was positive for amphetamines and cannabinoids. MRI of the brain demonstrated multiple infarcts involving the left parietal and cerebellar hemispheres. The patient was started on IV vancomycin for cellulitis and continued on fluids. Blood pressure was well-controlled on amlodipine 10 mg daily, and fall and aspiration precautions were implemented. For secondary stroke prevention, he was continued on aspirin 81 mg, clopidogrel 75 mg, and atorvastatin 80 mg daily. Wound care and social work/substance abuse navigators were involved to optimize discharge planning and address ongoing methamphetamine and cannabinoid use. During hospitalization, cellulitis improved with decreased erythema and edema, neurological deficits remained stable, and blood glucose was monitored for newly diagnosed type 2 diabetes (HbA1c 6.5%), with treatment initiated as needed for values above 180 mg/dL. An incidental echocardiogram revealed moderate ascending aortic dilation (4.9 cm), for which outpatient cardiology follow-up was recommended. The patient remained hemodynamically stable, with pain controlled on prescribed medications, and is anticipated for discharge to [facility] for ongoing rehabilitation and follow- up with primary care, cardiology, wound care, and substance use services. Physical examination today: General: Alert and oriented x 4 HEENT: Conjunctive are pink, sclerae clear, no icterus, pupil is equal in both sides, reactive to light, no ear discharge, no pharyngeal erythema or an edema. Neck: Supple, no JVD, no lymphadenopathy and thyromegaly. Chest: Equal air entry on both lungs, no additional sounds no rhonchi no wheezing at the moment. Cardiovascular: S1-S2 regular sinus rhythm and, regular rate, no gallops, no rubs, no murmurs Abdomen: No visible peristalsis, Bowel sounds present on auscultation, soft, no tenderness, no guarding, no rigidity Extremities: No obvious deformities, no pitting edema bilaterally, capillary refill intact, peripheral pulsations are intact on both sides Central Nervous System: Mental status: Awake, alert, oriented to person, place and time. Able to answer simple questions Motor system: Right-sided neglect noted in upper and lower extremities patient's strength in the right upper extremity and lower extremity 3/5 ,left upper and lower extremity 5/5 Negative Babinski. Musculoskeletal: No joint swelling, deformities, inflammations, and no scoliosis and back tenderness Skin: Improving Bruises present on patient's bilateral knees and bilateral ankles and hands. Warm and dry. Dry oral mucosa. Imaging: Head CT: No CT evidence of an acute intracranial hemorrhage. Age-indeterminate areas of hypoattenuation with loss of murdock-white differentiation of the left parietal lobe and left cerebellar hemisphere. CTA head and neck: CTA head demonstrates no evidence of large vessel occlusion, aneurysm, or significant stenosis.CTA neck demonstrates no evidence of carotid or vertebral dissection or significant stenosis. Echocardiogram: Normal LV size and function. Mild concentric hypertrophy. LVEF is 60-65%. RV is mildly dilated in size with normal function. LA size is normal. Saline study was performed with 2 IV injections of 10 ccs of agitated normal saline at rest and with valsalva. Negative saline study for right to left flow. Trileaflet AV appears mildly sclerotic without stenosis or insufficiency. Mild MV annular calcification without stenosis. Trace regurgitation. TV appears structurally normal with trace regurgitation. Aortic root is upper limit normal in size. Ascending aorta is dilated, measuring about 4.[address] to evaluate further if clinically indicated. Normal pericardium. No effusion. Head MRI: Multiple acute infarcts in the left posterior frontal and parietal lobes. Moderate to severe chronic microvascular ischemic change. Multiple chronic lacunar infarctions in bilateral centrum semiovale. Laboratory Tests Test 01/30/25 05:42 01/31/25 05:24 01/31/25 07:40 Phosphorus Level 3.7 MG/DL 3.5 MG/DL Magnesium Level 2.0 MG/DL 2.0 MG/DL White Blood Count 10.4 X10'3 Red Blood Count 4.60 X10'6 Hemoglobin 14.3 g/dl Hematocrit 41.7 % Mean Corpuscular Volume 90.5 FL Mean Corpuscular Hemoglobin 31.1 PG Mean Corpuscular Hemoglobin Concent 34.4 g/dL Red Cell Distribution Width 14.4 % Platelet Count 248 X10'3 Mean Platelet Volume 7.4 FL Neutrophils (%) (Auto) 63.0 % Lymphocytes (%) (Auto) 26.7 % Monocytes (%) (Auto) 6.7 % Eosinophils (%) (Auto) 2.8 % Basophils (%) (Auto) 0.8 % Neutrophils # (Auto) 6.6 X10'3 Lymphocytes # (Auto) 2.8 X10'3 Monocytes # (Auto) 0.7 X10'3 Eosinophils # (Auto) 0.3 X10'3 Basophils # (Auto) 0.1 X10'3 CBC Comment Sodium Level 140 MMOL/L Potassium Level 3.7 MMOL/L Chloride Level 106 MMOL/L Carbon Dioxide Level 25.3 MMOL/L Anion Gap 9 Blood Urea Nitrogen 9 MG/DL Creatinine 0.58 MG/DL Estimated GFR/1.73 m2 > 90 ML/MIN BUN/Creatinine Ratio 15.5 Glucose Level 94 MG/DL Calcium Level 8.0 MG/DL Total Bilirubin 1.0 MG/DL Aspartate Amino Transf (AST/SGOT) 15 U/L Alanine Aminotransferase (ALT/SGPT) 15 U/L Alkaline Phosphatase 73 IU/L Total Protein 6.9 G/DL Albumin 3.1 G/DL Globulin 3.8 G/DL Albumin/Globulin Ratio 0.8 Chemistry Comments Advise on discharge: Continue medications as prescribed, aspirin clopidogrel Your echocardiogram showed ascending aorta 4.9 cm, follow up with PCP and Cardiology moderate aortic dilation *Problems/Diagnosis: (1) Cerebrovascular accident Status: Acute Total Time Spent on D/C: > 30 Minutes Date of Service: Jan 31, 2025 Billing Provider: ROLO ARZOLA MD Common Visit Codes: 10448-LUN/OBS DISCH DAY >30min JAMES CHAND, RES Jan 31, 2025 20:01 ROLO ARZOLA MD Feb 01, 2025 15:23
== END 2025-01-31 14:25 | DRG 45 ==
LOC: ER 13:27 → ED HOLD 17:31 → EDBEDREQ 20:52 → ORTHO 4S 21:30
PROVIDERS: ADMIT Family Medicine; ATTEND Family Medicine
PROC: B3251ZZ Computerized Tomography (CT Scan) of Bilateral Common Carotid Arteries using Low Osmolar Contrast (ICD-10-PCS; principal; 2025-01-24)
PROC: B32G1ZZ Computerized Tomography (CT Scan) of Bilateral Vertebral Arteries using Low Osmolar Contrast (ICD-10-PCS; 2025-01-24)
PROC: B32R1ZZ Computerized Tomography (CT Scan) of Intracranial Arteries using Low Osmolar Contrast (ICD-10-PCS; 2025-01-24)
PROC: B3281ZZ Computerized Tomography (CT Scan) of Bilateral Internal Carotid Arteries using Low Osmolar Contrast (ICD-10-PCS; 2025-01-24)
DX: I63.9 Cerebral infarction, unspecified (principal); L03.115 Cellulitis of right lower limb; R29.711 NIHSS score 11; E11.9 Type 2 diabetes mellitus without complications; F12.90 Cannabis use, unspecified, uncomplicated; B95.62 Methicillin resistant Staphylococcus aureus infection as the cause of diseases classified elsewhere; F15.90 Other stimulant use, unspecified, uncomplicated; I77.810 Thoracic aortic ectasia
CPT/HCPCS: 36415; 70450; 70496; 70498; 70551; 71045; 80053; 80061; 80305; 80320; 81003; 82140; 82948; 83036; 83735; 84100; 85025; 85610; 85730; 86885; 86900; 86901; 87081; 92508; 92616; 93005; 93306; 96365; 96375; 97110; 97116; 97161; 97530; 99285; A4615; A6213; A6250; A6258; G0378; J3411; J3490; J7030; Q9967